=== PATIENT | female | born 1990 | race Caucasian/White ===

== ENCOUNTER 2018-07-22 14:33 | Emergency (ER) | payer OTHER ==
[2018-07-22] MEDS: OXYCODONE/ACETAMINOPHEN (5/325) TAB PO (16:25)
[2018-07-22] MEDS: KETOROLAC 30 MG INJ IM (16:26)
== END 2018-07-22 16:38 | disposition home or self-care (01) ==
LOC: FTE 16:38
DX: S33.5XXA Sprain of ligaments of lumbar spine, initial encounter (principal); J45.909 Unspecified asthma, uncomplicated; X58.XXXA Exposure to other specified factors, initial encounter; Y92.9 Unspecified place or not applicable
CPT/HCPCS: 81025; 96372; 99284-25

== ENCOUNTER 2018-11-02 17:32 | Emergency (ER) | payer OTHER ==
[2018-11-02] MEDS ORDERED: IBUPROFEN 600 MG TAB PO (19:00)
[2018-11-02] MEDS: KETOROLAC 60 MG INJ IM (19:16)
== END 2018-11-02 19:22 | disposition home or self-care (01) ==
LOC: FTE 17:32
DX: S89.92XA Unspecified injury of left lower leg, initial encounter (principal); J45.909 Unspecified asthma, uncomplicated; X50.1XXA Overexertion from prolonged static or awkward postures, initial encounter; Y92.9 Unspecified place or not applicable
CPT/HCPCS: 29505; 73562; 81025; 96372; 99284-25